=== PATIENT | female | born 1930 | race Caucasian/White ===

== ENCOUNTER 2017-08-12 20:06 | Emergency (ER) | payer OTHER, MEDICARE ==
[2017-08-12 20:18] VITALS: TEMP 97.8; BMI 25.4
--- NOTE | 2017-08-12 20:48 | PDOC ---
History of Present Illness - General History Source: Patient Exam Limitations: No Limitations - History of Present Illness Initial Comments: 08/12/17 20:57 The patient is an 87 year old female, with significant past medical history of hypertension, who presents to the emergency room today complaining of 1 day of lightheadedness that she describes as dizziness, and feels like the room is spinning. She also reports nausea and 1 episode of vomiting just prior to arrival to the emergency room. As per family, the patient has been sitting down all day and refused to move because she was scared of the dizzy sensation. Denies chest pain, SOB. Denies fever, chills. Denies abdominal pain. Denies visual changes. Denies recent travel. Allergies: NKDA Social Hx: No tobacco use. No alcohol use. PCP: Dr. Gil <Liudmila Andrea - Last Filed: 08/12/17 22:00> - General History Source: Patient <Darrell Rosario - Last Filed: 08/13/17 19:45> - General Chief Complaint: Lightheaded Stated Complaint: DIZZY/NAUSEA Time Seen by Provider: 08/12/17 20:48 Past History <Liudmila Andrea - Last Filed: 08/12/17 22:00> - Past Medical History HTN: Yes Hypercholesterolemia: Yes Thyroid Disease: Yes - Psycho/Social/Smoking Cessation Hx Anxiety: No Suicidal Ideation: No Smoking History: Never smoked Have you smoked in the past 12 months: No Information on smoking cessation initiated: No Hx Alcohol Use: No Drug/Substance Use Hx: No Substance Use Type: None Hx Substance Use Treatment: No <Darrell Rosario - Last Filed: 08/13/17 19:45> - Past Medical History Allergies/Adverse Reactions: Allergies Allergy/AdvReac Type Severity Reaction Status Date / Time No Known Allergies Allergy Verified 08/12/17 20:14 Home Medications: Ambulatory Orders Aspirin [ASA -] 81 mg DAILY 04/05/15 Atorvastatin Ca [Lipitor -] 40 mg PO HS 04/05/15 Kerry 10-40 mg Tablet 10 - 40 mg DAILY 04/05/15 Ca Citrate/Mgox/Vit D3/B6/Min [Citracal Plus Tablet] 1 tab BID 04/05/15 Cholecalciferol (Vitamin D3) [Vitamin D-3] 1,000 unit PO DAILY 04/05/15 Cyanocobalamin/FA/Pyridoxine [Combgen Tablet] 1 each PO BID 04/05/15 FA/Mv,Ca,Iron,Min/Lycopene/Lut [Centrum Tablet] 1 tab DAILY 04/05/15 Levothyroxine [Synthroid -] 75 mcg DAILY 04/05/15 Campbell-3 Fatty Acids [Fish Oil] 1,200 mg BID 04/05/15 Vitamin E 400 unit PO BID 04/05/15 Meclizine HCl [Antivert -] 25 mg PO TID #30 tablet 08/12/17 Ondansetron [Zofran *Odt*] 4 mg SL TID #30 od.tablet 08/12/17 Review of Systems - Review of Systems Able to Perform ROS?: Yes Comments:: 08/12/17 20:57 CONSTITUTIONAL: Present: dizziness x1day Absent: fever, no chills, no fatigue EYES: Absent: visual changes ENT: Absent: ear pain, no sore throat CARDIOVASCULAR: Absent: chest pain, no palpitations RESPIRATORY: Absent: cough, no SOB GI: Present: nausea, 1 episode of vomiting Absent: abdominal pain,no constipation, no diarrhea GENITOURINARY: Absent: dysuria, no frequency, no hematuria MUSCULOSKELETAL: Absent: back pain, no arthralgia, no myalgia SKIN: Absent: rash <Liudmila Andrea - Last Filed: 08/12/17 22:00> *Physical Exam - Vital Signs Last Vital Signs Temp Pulse Resp BP Pulse Ox 97.8 F 60 19 142/51 98 08/12/17 20:15 08/12/17 20:15 08/12/17 20:15 08/12/17 20:15 08/12/17 20:15 - Physical Exam Comments: 08/12/17 20:57 GENERAL: Well-appearing, well-nourished. No apparent distress. HEENT: Normocephalic, atraumatic. PERRL, EOM intact. CARDIOVASCULAR: Normal S1, S2. Regular rate and rhythm. PULMONARY: Clear to auscultation bilaterally. ABDOMEN: Soft, non-distended, non-tender. EXTREMITIES: Normal ROM in all four extremities. No gross deformities. SKIN: Warm, dry. No rash NEUROLOGICAL: No focal neurological deficits. <Liudmila Andrea - Last Filed: 08/12/17 22:00> - Vital Signs Last Vital Signs Temp Pulse Resp BP Pulse Ox 97.8 F 60 19 142/51 98 08/12/17 20:15 08/12/17 20:15 08/12/17 20:15 08/12/17 20:15 08/12/17 20:15 <Darrell Rosario - Last Filed: 08/13/17 19:45> Heart Score/ECG Review #1 General ECG Interpretation: Sinus Rhythm 08/12/17 21:50 Normal sinus rhythm at a rate of 62 bpm <Liudmila Andrea - Last Filed: 08/12/17 22:00> ED Treatment Course - LABORATORY CBC & Chemistry Diagram: 08/12/17 20:52 08/12/17 20:52 - RADIOLOGY Radiograph Interpretation: 08/12/17 22:00 EXAM#: TYPE/EXAM: RESULT: [id number] CT/HEAD CT WITHOUT CONTRAST Cranial CT without contrast Clinical information: dizziness Multiplanar imaging was performed. No intracranial hemorrhage is seen. There is no discrete infarct within the limitations of CT. No extra-axial fluid collection is noted. There is no obvious mass lesion. Involutional changes are noted with mild ventricular dilatation. Incidental note is made of small bilateral physiologic basal ganglia calcifications. Impression: No CT evidence of acute intracranial pathology. Reported By: Arthur Tracey MD 08/12/17 [id number] <Liudmila Andrea - Last Filed: 08/12/17 22:00> - LABORATORY CBC & Chemistry Diagram: 08/12/17 20:52 08/12/17 20:52 <Darrell Rosario - Last Filed: 08/13/17 19:45> Medical Decision Making - Medical Decision Making 08/12/17 22:05 Dr. Rosario: The scribe's documentation has been prepared under my direction and personally reviewed by me in its entirery. I confirm that the note above accurately reflects all work, treatment, procedures, and medical decision making performed by me. <Darrell Rosario - Last Filed: 08/13/17 19:45> *DC/Admit/Observation/Transfer - Attestations Scribe Attestion: 08/12/17 20:58 Documentation prepared by DELMA Parrish, acting as chief medical officer for Darrell Rosario MD. <Liudmila Andrea - Last Filed: 08/12/17 22:00> - Discharge Dispostion Admit: No <Darrell Rosario - Last Filed: 08/13/17 19:45> Diagnosis at time of Disposition: Vertigo - Discharge Dispostion Disposition: HOME Condition at time of disposition: Stable - Prescriptions Prescriptions: Meclizine HCl [Antivert -] 25 mg PO TID #30 tablet Ondansetron [Zofran *Odt*] 4 mg SL TID #30 od.tablet - Referrals Referrals: Sally Gil MD [Primary Care Provider] - Angelito Cohn MD [Staff Physician] - - Patient Instructions Printed Discharge Instructions: DI for Vertigo Additional Instructions: take medication as directed. Follow up with your doctor and the neurologist referred to you if symptoms don't improve. Drink plenty of fluids.
[2017-08-12] MEDS ORDERED: ONDANSETRON 4 MG/2 ML VIAL IVPUSH STA (20:49)
[2017-08-12] MEDS ORDERED: MECLIZINE HCL 25 MG TABLET (FP) PO STA (20:49)
[2017-08-12] MEDS ORDERED: MECLIZINE HCL 25 MG TABLET (FP) ONE (21:01)
[2017-08-12] MEDS ORDERED: ONDANSETRON 4 MG/2 ML VIAL ONE (21:02)
[2017-08-12 21:05] LABS: BASOPHIL 0.4 % (0-2.0); EOSINOPHIL 0.2 % (0-4.5); MCH 29.5 pg (25.7-33.7); MCHC 34.1 g/dl (32.0-36.0); MEAN CELL VOLUME 86.5 fl (80-96); MEAN PLT VOLUME 9.4 fl (7.5-11.1); NEUTROPHILS 82.8 % (42.8-82.8); PLATELET COUNT 206 K/MM3 (134-434); RDW 15.2 % (11.6-15.6); WHITE BLOOD COUNT 5.7 K/mm3 (4.0-10.0)
[2017-08-12 21:25] LABS: INR 1.05 (0.82-1.09); PROTHROMBIN TIME (PATIENT) 11.6 SEC (9.98-11.88)
[2017-08-12 21:30] LABS: ANION GAP 9 (8-16); CALCIUM 9.2 mg/dL (8.5-10.1); CO2 22 mmol/L (21-32); CREATININE 1.7 mg/dL (0.55-1.02); GLUCOSE,RANDOM 161 mg/dL (74-106); SGPT/ALT 31 U/L (12-78); TOT PROT 6.8 g/dl (6.4-8.2)
[2017-08-12 21:33] LABS: ALK PHOS 77 U/L (45-117); CPK 74 IU/L (26-192); TROPONIN I < 0.02 ng/ml (0.00-0.05)
[2017-08-12 21:34] LABS: SGOT/AST 27 U/L (15-37)
[2017-08-12 22:32] VITALS: BP 155/65; PULSE 61
--- NOTE | 2017-08-13 10:44 | EKG ---
Test Reason : Blood Pressure : / mmHG Vent. Rate : 062 BPM Atrial Rate : 062 BPM P-R Int : 194 ms QRS Dur : 082 ms QT Int : 420 ms P-R-T Axes : 037 -28 082 degrees QTc Int : 426 ms NORMAL SINUS RHYTHM NONSPECIFIC ST ABNORMALITY ABNORMAL ECG WHEN COMPARED WITH ECG OF 19-MAR-2004 15:43, NO SIGNIFICANT CHANGE WAS FOUND Confirmed by MARKUS STARR MD ([id number]) on 08/13/2017 10:44:09 AM Referred By: Confirmed By:MARKUS STARR MD
== END 2017-08-12 22:32 | disposition home or self-care (01) ==
LOC: JER 20:06
DX: R42 Dizziness and giddiness (principal); I10 Essential (primary) hypertension; E78.00 Pure hypercholesterolemia, unspecified; E03.9 Hypothyroidism, unspecified
CPT/HCPCS: 36415; 70450-TC; 80053; 84484; 85025; 85610; 86850; 86900; 86901; 93005; 93010; 99284-25

== ENCOUNTER 2018-06-25 11:27 | Emergency (ER) | payer OTHER, MEDICARE ==
[2018-06-25 11:36] VITALS: BMI 25.4
[2018-06-25] MEDS ORDERED: ONDANSETRON 4 MG/2 ML VIAL ONE ×3 (11:43→14:45)
[2018-06-25] MEDS ORDERED: ONDANSETRON 4 MG/2 ML VIAL IVPB ONE (12:26)
--- NOTE | 2018-06-25 12:26 | PDOC ---
History of Present Illness - General Chief Complaint: Vomiting/Diarrhea Stated Complaint: Nausea/Vomiting Time Seen by Provider: 06/25/18 11:37 - History of Present Illness Initial Comments: 06/25/18 12:21 88 year old w/ recent new diagnosis of Alzhemiers, HLD, HTN, hypothyroidism BIBA with sudden onset vomiting and diarrhea. The family notes that the vomit only contained food and no blood, they could not assess if the diarrhea had blood. They denied any fever but admitted that patient looked clammy, sweaty and seemed to have a brief LOC lasting about 1-2 seconds while she was retching. The family visits the patient once every 1-2months and noted that the patient had lost some weight since May and had progression of her dementia. The family had told the patient about the of her son just prior to the patient's episode of nausea, vomiting and diarrhea. The patient denies any chest pain, abdominal pain, SOB or headache. The family notes that after the vomiting the patient had some coughing. PMHX: as in HPI PSHX: none Meds: Meclizine, Synthyroid, Statin, ASA, Amlodipine Allergies: NKDA Past History - Past Medical History Allergies/Adverse Reactions: Allergies Allergy/AdvReac Type Severity Reaction Status Date / Time No Known Allergies Allergy Verified 06/25/18 11:36 Home Medications: Ambulatory Orders Aspirin [ASA -] 81 mg DAILY 04/05/15 Atorvastatin Ca [Lipitor -] 40 mg PO HS 04/05/15 Kerry 10-40 mg Tablet 10 - 40 mg DAILY 04/05/15 Ca Citrate/Mgox/Vit D3/B6/Min [Citracal Plus Tablet] 1 tab BID 04/05/15 Cholecalciferol (Vitamin D3) [Vitamin D-3] 1,000 unit PO DAILY 04/05/15 Cyanocobalamin/FA/Pyridoxine [Combgen Tablet] 1 each PO BID 04/05/15 FA/Mv,Ca,Iron,Min/Lycopene/Lut [Centrum Tablet] 1 tab DAILY 04/05/15 Levothyroxine [Synthroid -] 75 mcg DAILY 04/05/15 Ennice-3 Fatty Acids [Fish Oil] 1,200 mg BID 04/05/15 Vitamin E 400 unit PO BID 04/05/15 Meclizine HCl [Antivert -] 25 mg PO TID #30 tablet 08/12/17 Ondansetron [Zofran *Odt*] 4 mg SL TID #30 od.tablet 08/12/17 Ondansetron HCl [Zofran] 4 mg PO PRN #10 tablet 06/25/18 COPD: No HTN: Yes Hypercholesterolemia: Yes Thyroid Disease: Yes - Suicide/Smoking/Psychosocial Hx Smoking History: Unknown if ever smoked Have you smoked in the past 12 months: No Hx Alcohol Use: No Drug/Substance Use Hx: No Substance Use Type: None Hx Substance Use Treatment: No Review of Systems - Review of Systems Able to Perform ROS?: Yes Is the patient limited Chinese proficient: No Constitutional: Yes: Diaphoresis. No: Chills, Fever HEENTM: Yes: Hearing Loss Respiratory: Yes: Cough. No: Shortness of Breath Cardiac (ROS): No: Chest Pain, Palpitations, Chest Tightness ABD/GI: Yes: Diarrhea, Nausea, Vomiting. No: Constipated : No: Burning, Dysuria, Hematuria Neurological: No: Headache *Physical Exam - Vital Signs Last Vital Signs Temp Pulse Resp BP Pulse Ox 97.4 F L 68 16 185/67 97 06/25/18 11:34 06/25/18 11:34 06/25/18 11:34 06/25/18 11:34 06/25/18 11:34 - Physical Exam Comments: 06/25/18 12:31 GENERAL: Awake, alert, and fully oriented, in no acute distress HEAD: No signs of trauma, normocephalic, atraumatic EYES: EOMI, sclera anicteric, conjunctiva clear ENT: oropharynx clear without exudates, dry mucosa NECK: Normal ROM LUNGS: No distress, speaks full sentences, clear to auscultation bilaterally HEART: Regular rate and rhythm, normal S1 and S2, no murmurs, rubs or gallops, peripheral pulses normal and equal bilaterally. ABDOMEN: Soft, nontender, normoactive bowel sounds. No guarding, no rebound. No masses EXTREMITIES : Normal inspection, Normal range of motion, no edema. No clubbing or cyanosis. NEUROLOGICAL: Normal speech, normal gait, no focal sensorimotor deficits SKIN: Warm, Dry, normal turgor, no rashes or lesions noted ED Treatment Course - LABORATORY CBC & Chemistry Diagram: 06/25/18 13:12 06/25/18 13:12 - RADIOLOGY Radiology Studies Ordered: Category Date Time Status CXRPORT [CHEST X-RAY PORTABLE*] [RAD] Stat Radiology 06/25/18 12:19 Ordered Medical Decision Making - Medical Decision Making 06/25/18 12:34 88 year old w/ recent new diagnosis of Alzhemiers, HLD, HTN, hypothyroidism BIBA with sudden onset vomiting and diarrhea. The patient's history and symptoms are most consistent with gastroenteritis vs acute stress reaction. Will evaluate for these etiologies. The patient noted improvement of nausea on reassessment and was able to eat crackers and drink fluid without difficulty. Patient passed PO trial and had resolution of symptoms. Patient is stable for discharge at this time and given contact for case management to set up home nursing. The patient was 06/28/18 03:09 06/28/18 03:11 *DC/Admit/Observation/Transfer Diagnosis at time of Disposition: Gastroenteritis - Discharge Dispostion Disposition: HOME Condition at time of disposition: Stable Decision to Admit order: No - Prescriptions Prescriptions: Ondansetron HCl [Zofran] 4 mg PO PRN #10 tablet - Referrals Referrals: Sally Gil MD [Primary Care Provider] - - Patient Instructions Printed Discharge Instructions: DI for Viral Gastroenteritis -- Adult Additional Instructions: You were seen here for nausea, vomiting and diarrhea. In the ED bloodwork and EKG was done which did not show significant findings and you showed improvement with anti-nausea medications. It is likely that your symptoms were due to viral gastroenteritis. You were discharged with a short course of Zofran (anti nausea) medication. It is important that you follow up with your primary care physician and have social work/case management involved to establish nursing services for your care at home in the setting of your diagnoses of Alzheimers, high blood pressure and high cholesterol. Your at home safety and activities of daily living should be assessed, evaluated and assisted as needed. Please see your primary care physician as soon as possible and no later than 1 week to follow up for your current symptoms. Return to the ED immediately if your symptoms worsen, if you develop a fever, and if you have profuse diarrhea and vomiting and blood in the vomit, urine or stool. - Post Discharge Activity
[2018-06-25] MEDS ORDERED: SODIUM CHLORIDE 1,000 ML IV SCH (12:30)
[2018-06-25] MEDS ORDERED: ONDANSETRON 4 MG/2 ML VIAL IVPUSH ONE (13:34)
[2018-06-25 13:37] LABS: BASO % 0.6 % (0-2.0); EOS % 0.3 % (0-4.5); HEMATOCRIT 32.1 % (32.4-45.2); HEMOGLOBIN 10.9 GM/dL (10.7-15.3); LYMPH % 10.7 % (8-40); MCH 28.8 pg (25.7-33.7); MEAN CELL VOLUME 84.7 fl (80-96); MEAN PLT VOLUME 8.9 fl (7.5-11.1); MONO % 2.4 % (3.8-10.2); PLATELET COUNT 199 K/MM3 (134-434); RBC 3.79 M/mm3 (3.60-5.2); RDW 13.8 % (11.6-15.6); WHITE BLOOD COUNT 4.1 K/mm3 (4.0-10.0)
[2018-06-25 13:50] LABS: URINE APPEARANCE CLEAR; URINE BILIRUBIN NEGATIVE (<2.0 mg/dL); URINE COLOR LTYELLOW; URINE GLUCOSE (UA) 1+ (NEGATIVE); URINE KETONE TRACE (NEGATIVE); URINE LEUK ESTERASE NEGATIVE (NEGATIVE); URINE NITRITE NEGATIVE (NEGATIVE); URINE UROBILINOGEN NEGATIVE mg/dL (0.2-1.0)
[2018-06-25 13:55] LABS: URINE PROTEIN 3+ (NEGATIVE)
[2018-06-25 13:57] LABS: URINE BACTERIA RARE /hpf (NONE SEEN); URINE MUCUS RARE
[2018-06-25 13:59] LABS: ALBUMIN 4.1 g/dl (3.4-5.0); ANION GAP 11 (8-16); BLOOD UREA NITROGEN 28 mg/dL (7-18); CALCIUM 9.4 mg/dL (8.5-10.1); CHLORIDE 109 mmol/L (98-107); CO2 22 mmol/L (21-32); GLUCOSE,RANDOM 152 mg/dL (74-106); POTASSIUM 4.7 mmol/L (3.5-5.1); SGOT/AST 25 U/L (15-37); SODIUM 142 mmol/L (136-145)
[2018-06-25 14:04] LABS: ALK PHOS 115 U/L (45-117); BILIRUBIN,TOTAL 0.7 mg/dL (0.2-1.0); CREATININE 1.9 mg/dL (0.55-1.02); SGPT/ALT 31 U/L (12-78); TOT PROT 6.9 g/dl (6.4-8.2)
--- NOTE | 2018-06-25 14:27 | EKG ---
Test Reason : Blood Pressure : / mmHG Vent. Rate : 065 BPM Atrial Rate : 065 BPM P-R Int : 192 ms QRS Dur : 078 ms QT Int : 424 ms P-R-T Axes : 024 -37 048 degrees QTc Int : 440 ms NORMAL SINUS RHYTHM LEFT AXIS DEVIATION MINIMAL VOLTAGE CRITERIA FOR LVH, MAY BE NORMAL VARIANT ABNORMAL ECG WHEN COMPARED WITH ECG OF 12-AUG-2017 21:15, NO SIGNIFICANT CHANGE WAS FOUND Confirmed by BRUNO FLOYD, JUAN ([id number]) on 06/25/2018 2:26:46 PM Referred By: Confirmed By:JUNA CARR MD
[2018-06-25 16:06] VITALS: BP 167/67; PULSE 77; TEMP 98
--- NOTE | 2018-06-25 16:07 | PDOC ---
Attending Attestation - Resident Resident Name: RaghuLivia - ED Attending Attestation I have performed the following: I have examined & evaluated the patient, The case was reviewed & discussed with the resident, I agree w/resident's findings & plan, Exceptions are as noted - HPI HPI: 06/25/18 15:51 "The patient is a 88 year old female, accompanied by family, with a significant PMH of HTN, alzheimers dementia, who presents to the emergency department with vomiting (non bloody non bilious) and diarrhea (non bloody) beginning this morning. As per family, they arrived at the patients home yesterday, and pt was in her USOH. Beginning this morning the patient began to experience a sudden onset of nausea with vomiting and diarrhea. Pt denies any abdominal pain and states the diarrhea has mostly resolved. She has not vomited since coming to the ER and reports only slight nausea at this time. The patient denies chest pain, shortness of breath, headache and dizziness. Denies fever, chills, and constipation. Denies dysuria, frequency, urgency and hematuria. Allergies: NKDA Social Hx: No tobacco use. No alcohol use. PCP: Dr. Gil " - Physicial Exam PE: 06/25/18 15:53 "GENERAL: Awake, alert, and fully oriented, in no acute distress. HEAD: No signs of trauma EYES: PERRLA, EOMI, sclera anicteric, conjunctiva clear ENT: Auricles normal inspection, hearing grossly normal, nares patent, oropharynx clear without exudates. Moist mucosa NECK: Nontender, no stepoffs, Normal ROM, supple, no lymphadenopathy, JVD, or masses LUNGS: Breath sounds equal, clear to auscultation bilaterally. No wheezes, and no crackles HEART: Regular rate and rhythm, normal S1 and S2, no murmurs, rubs or gallops ABDOMEN: Soft, nontender, normoactive bowel sounds. No guarding, no rebound. No masses EXTREMITIES: Normal range of motion, no edema. No clubbing or cyanosis. No cords, erythema, or tenderness NEUROLOGICAL: Cranial nerves II through XII intact. 5/5 strength and sensation in all extremities, Normal speech, normal gait, normal cerebellar function SKIN: Warm, Dry, normal turgor, no rashes or lesions noted. " - Medical Decision Making 06/25/18 15:54 88 F with N+V+D. Likely viral gastroenteritis. Pt with no abdominal pain and benign abdominal exam. No indication for imaging at this time. - Labs, UA, CXR - IVF, zofran - Reassess 06/25/18 16:50 Labs, UA, CXR unremarkable. Pt reassessed - able to tolerate PO without vomiting. Ate crackers and juice. Pt denies any nausea at this time. Denies any recent diarrhea. Spoke with case management regarding possibly setting pt up with home services but did not hear back from them. I discussed with family the importance of pt having help at home. They state that they will be with her at home this week and will f/u with here PMD Dr. Gil about possibly arranging help at home. Pt is well appearing, with normal vitals. Clinically stable for DC at this time. I discussed the physical exam findings, ancillary test results and final diagnoses with the patient. I answered all of the patient's questions. The patient was satisfied with the care received and felt comfortable with the discharge plan and treatment plan. The patient agrees to follow up with the primary care physician within 24-72 hours. <Genaro Leong - Last Filed: 06/25/18 16:54> Attestations - Attestations 06/25/18 16:36 Documentation prepared by Edil Brown, acting as medical interpreter for Genaro Leong MD. <Edil Brown - Last Filed: 06/25/18 16:36>
== END 2018-06-25 17:37 | disposition home or self-care (01) ==
LOC: JER 11:27
PROC: 3E0337Z Introduction of Electrolytic and Water Balance Substance into Peripheral Vein, Percutaneous Approach (ICD-10-PCS; principal; 2018-06-25)
PROC: 3E033GC Introduction of Other Therapeutic Substance into Peripheral Vein, Percutaneous Approach (ICD-10-PCS; 2018-06-25)
DX: K52.9 Noninfective gastroenteritis and colitis, unspecified (principal); I10 Essential (primary) hypertension; E78.5 Hyperlipidemia, unspecified; E03.9 Hypothyroidism, unspecified; G30.8 Other Alzheimer's disease; F02.80 Dementia in other diseases classified elsewhere, unspecified severity, without behavioral disturbance, psychotic disturbance, mood disturbance, and anxiety
CPT/HCPCS: 36415; 71045-TC-FY; 80053; 81003; 81015; 82550; 84484; 85025; 87086; 87186; 93005; 93010; 99283-25; J7030